=== PATIENT | female | born 1940 | race Caucasian/White ===

== ENCOUNTER 2016-10-11 13:18 | Emergency (ER) | payer MEDICARE, OTHER ==
[~2016-10-11] VITALS: Wt 64.5 kg
[~2016-10-11 13:18] MED LIST: ASPI81TA3 PO; BUDE6HFA INHALATION; FERR325C PO; ISOS30TA5 PO; NITR0.4T6 SL; OMEP40CA6 PO
--- NOTE | 2016-10-11 15:31 | ERD ---
ER Documentation Chief Complaint Date/Time DATE: 10/11/16 TIME: 15:28 Chief Complaint RIGHT FOOT PAIN FROM A FALL TODAY. NO DEFORMITY NOTED. HPI This patient is a 76-year-old female with history of type 2 diabetes, high cholesterol, and hypertension presenting to the emergency department for right foot pain which she rates as 6 out of 10 on the pain scale after injury in her home today at approximately 11 AM. Patient states she was going down the stairs when she missed the last step and flexed her foot forward causing pain. She denies any pop or crack when the injury occurred. Pain is exacerbated with ambulation. She took some naproxen at home with relief of her symptoms. She denies any fevers, chills, loss of consciousness, head injury, other injuries or symptoms. ROS All systems reviewed and are negative except as per history of present illness. Medications Home Meds Reported Medications Nitroglycerin* (Nitroglycerin* SL) 0.4 Mg Tab.subl, 0.4 MG SL Q5MIN Y for CHEST PAIN, BOTTLE 06/26/16 Aspirin* (Aspirin* Chew) 81 Mg Tab.chew, 81 MG PO DAILY, TAB.CHEW 06/26/16 Budesonide-Formoterol Fumarate* (Symbicort*) 160-4.5 Hfa.aer.ad, 2 PUFF INHALATION BID, #1 EACH 06/26/16 Isosorbide Mononitrate* (Isosorbide Mononitrate*) 30 Mg Tab.er.24h, 30 MG PO DAILY, TAB 06/26/16 Ferrous Sulfate (Iron) 325 Mg Capsule.er, 325 MG PO DAILY, CAP 06/26/16 Omeprazole* (Omeprazole*) 40 Mg Capsule.dr, 40 MG PO DAILY, #30 CAP 06/26/16 Allergies Allergies: Coded Allergies: No Known Drug Allergy (Verified Allergy, Unknown, 06/30/16) PMhx/Soc History of Surgery: Yes (HYSTERECTOMY) Anesthesia Reaction: No Hx Neurological Disorder: No Hx Respiratory Disorders: No Hx Cardiac Disorders: Yes (HEART CATH ) Hx Psychiatric Problems: No Hx Miscellaneous Medical Probl: No Hx Alcohol Use: No Hx Substance Use: No Hx Tobacco Use: No FmHx Noncontributory for chief complaint Physical Exam Vitals Vital Signs Date Time Temp Pulse Resp B/P Pulse Ox O2 Delivery O2 Flow Rate FiO2 10/11/16 13:24 99.0 99 20 136/75 97 Physical Exam INITIAL VITAL SIGNS: Reviewed by me. GENERAL: Alert and interactive. No acute distress. HEAD: Head is normocephalic and atraumatic. EYES: EOMI. No scleral icterus. No conjunctival injection. ENT: Moist mucosa. NECK: Supple. Full range of motion. RESPIRATORY: Normal respiratory effort. Clear breath sounds bilaterally. No wheezing, rales, or rhonchi. CV: Regular rate and rhythm. Normal S1 S2. No S3 or S4. No murmurs. ABDOMEN: Soft, non-distended, non-tender. No guarding. No rebound. No masses. EXTREMITIES: There is mild tenderness to palpation of the top of the foot over the carpal area on the right side. There is no warmth, erythema, edema, ecchymosis, or other findings. SKIN: Warm and dry. NEUROLOGIC: Alert and oriented x 4. Speech is normal. Moves all extremities equally. No motor or sensory deficits noted. Procedures/MDM 76-year-old female presents secondary to complaints of right foot pain after injury in her house today. I have ordered a right ankle and right foot x-ray looking for any signs of fracture, dislocations, or other abnormalities. 3 view right ankle x-ray interpreted by radiologist: PROCEDURE: XR Right Ankle CLINICAL INDICATION: Pain after injury TECHNIQUE: Standard 3 view radiographs were submitted. COMPARISON: None FINDINGS: Osseous structures: Well mineralized and intact with no fracture or destructive process identified. Calcaneal spurring is seen at the insertion of the plantar aponeurosis. Joint spaces: Well maintained with no significant erosions or spurring evident. Soft tissues: Appear unremarkable. IMPRESSION: 1. Calcaneal spurring 2. Otherwise, unremarkable right ankle series. 3 view right foot x-ray interpreted by radiologist: PROCEDURE: XR Right Foot CLINICAL INDICATION: Pain after injury TECHNIQUE: AP, oblique, and lateral radiographs were submitted. COMPARISON: None FINDINGS: Osseous structures: appear well mineralized and intact with no fracture or destructive process identified. There is calcaneal spurring at the insertion of the plantar aponeurosis. Joint spaces: Mild degenerative changes seen about the first metatarsal phalangeal joint. Soft tissues: appear unremarkable. IMPRESSION: 1. Calcaneal spurring 2. Mild degenerative change seen about the right first metatarsal phalangeal joint. Patient's primary diagnosis is foot strain on the right side. The patient was discharged with a prescription for naproxen. The patient was given an janusz wrap applied in the department and was neurovascularly intact post application. The patient's questions and concerns of been addressed in full and she is stable for discharge and outpatient management. Departure Diagnosis: Primary Impression: Strain of foot, right Additional Impression: Foot pain Condition: Stable Additional Instructions: No mas mejor en 2-3 mccauley, regresar. Mas peor en 24 horas, regresear rapidamente. Ir a doctor primario in 5-7 mccauley. Usar instrucciones cuando noe medicamento. TAJ GUTHRIE PA-C Oct 11, 2016 15:31
--- NOTE | 2016-10-11 15:50 | RADRPT ---
PROCEDURE: XR Right Foot CLINICAL INDICATION: Pain after injury TECHNIQUE: AP, oblique, and lateral radiographs were submitted. COMPARISON: None FINDINGS: Osseous structures: appear well mineralized and intact with no fracture or destructive process iden tified. There is calcaneal spurring at the insertion of the plantar aponeurosis. Joint spaces: Mild degenerative changes seen about the first metatarsal phalangeal joint. Soft tissues: appear unremarkable. IMPRESSION: 1. Calcaneal spurring 2. Mild degenerative change seen about the right first metatarsal phalangeal joint. Physician Michael Date Time Electronically viewed and signed by Physician Michael on 10/11/2016 15:50 /
--- NOTE | 2016-10-11 15:51 | RADRPT ---
PROCEDURE: XR Right Ankle CLINICAL INDICATION: Pain after injury TECHNIQUE: Standard 3 view radiographs were submitted. COMPARISON: None FINDINGS: Osseous structures: Well mineralized and intact with no fracture or destructive process identified. Calcaneal spurring is seen at the insertion of the plantar aponeurosis. Joint spaces: Well maintained with no significant erosions or spurring evident. Soft tissues: Appear unremarkable. IMPRESSION: 1. Calcaneal spurring 2. Otherwise, unremarkable right ankle series. Physician Michael Date Time Electronically viewed and signed by Physician Michael on 10/11/2016 15:51 /
[2016-10-11] MEDS ORDERED: IBUP-1542 PO (16:12)
== END 2016-10-11 16:22 | disposition home or self-care (01) ==
LOC: FTE 13:18
DX: S96.911A Strain of unspecified muscle and tendon at ankle and foot level, right foot, initial encounter (principal); W10.9XXA Fall (on) (from) unspecified stairs and steps, initial encounter; Y92.009 Unspecified place in unspecified non-institutional (private) residence as the place of occurrence of the external cause; Z79.82 Long term (current) use of aspirin
CPT/HCPCS: 73630

== ENCOUNTER 2016-11-05 10:47 | Day surgery (SDC) | payer MEDICARE, OTHER ==
[~2016-11-05] VITALS: Ht 160 cm; Wt 67.9 kg
[~2016-11-05 10:47] MED LIST changes: +IBUP-1542 PO
[2016-11-05 12:28] VITALS: Ht 160 cm; Wt 67.9 kg
[2016-11-05] MEDS ORDERED: SIMVASTATIN (12:38)
[2016-11-05] MEDS ORDERED: GLIPIZIDE (12:38)
[2016-11-05] MEDS ORDERED: PROPOFOL 40 ML ONE (12:40)
[2016-11-05] MEDS ORDERED: LIDOCAINE 2% (SDV) 5 ML INJ ONE (12:40)
[2016-11-05 12:49] VITALS: BP 126/79; PULSE 69; RESP 18
[2016-11-05 13:35] VITALS: BP 114/79; PULSE 60; RESP 16
--- NOTE | 2016-11-05 16:21 | GILP ---
DATE OF PROCEDURE: 11/05/2016 NAME OF PROCEDURE: Esophagogastroduodenoscopy and biopsy. SURGEON: Wilber Izquierdo MD PREOPERATIVE DIAGNOSES: 1. Abdominal pain. 2. Chronic heartburn. POSTOPERATIVE DIAGNOSES: 1. Large hiatal hernia. 2. Gastroesophageal reflux disease. 3. Gastritis with erosions. 4. Biopsy was positive for Helicobacter pylori infection. 5. Superficial ulcers in the stomach near the cardia and biopsies were taken for histopathology. INDICATION FOR THE PROCEDURE: Ms. Jessica Sheppard is a 76-year-old female patient who had upper abdo lili pain and chronic heartburn, not responding to therapy. The patient was scheduled for endoscop ic examination for further evaluation. The procedure and possible complications are well explained to the patient. The patient understood and consented to the procedure. DESCRIPTION OF PROCEDURE: Under the influence of anesthesia, the gastroscope was carefully introduc ed into the esophagus and under direct vision, it was advanced to the stomach and through the pyloru s into the duodenal bulb and descending duodenum. FINDINGS: ESOPHAGUS: The patient had a large hiatal hernia and gastroesophageal reflux disease. STOMACH: She had gastritis with erosions and gastric mucosal biopsies were positive for H. pylori i nfection. The patient was also noted to have superficial ulcers near the cardia of the stomach and biopsies were taken for histopathology. DUODENUM: Normal. The patient tolerated the procedures very well and there was no complication from the procedures. A t the end of the procedures, she was awake with stable vital signs and she was discharged home to [facility] care of her family. IMPRESSION: Please see postoperative diagnoses. PLAN: 1. Continue omeprazole. 2. Zantac 300 mg p.o. b.i.d. 3. Doxycycline 100 mg p.o. b.i.d. 4. Flagyl 500 mg p.o. b.i.d. 5. Pepto-Bismol 2 tablets p.o. q.i.d. All the last 4 medications for 14 days for H. pylori infection. Dictated By: WILBER IZQUIERDO MD GD/NTS Conf#: [id number] DID#: [id number] CC: WILBER IZQUIERDO MD;*EndCC*
--- NOTE | 2016-11-06 15:59 | CONS ---
DATE OF ADMISSION: 11/05/2016 DATE OF CONSULTATION: PREOPERATIVE GASTROENTEROLOGY CONSULTATION Dear Dr. Bah, I thank you very much for this kind referral. HISTORY OF PRESENT ILLNESS: Ms. Jessica Sheppard is a 76-year-old female patient who has been referre d to me for further evaluation of upper abdominal pain, not responding to therapy with omeprazole. The patient is also known to have had hiatal hernia and gastroesophageal reflux disease. The patien t has been taking baby aspirin a day. Her appetite has been good, and she is not losing any weight. There is no history of gallstones. She does not have any fever, chills, or jaundice. The patient is known to have had fatty liver. The patient had screening colonoscopy 3 years ago, and no colon neoplasm was identified. She is not a hypertensive. She has diabetes. There is no history of hear t disease or lung problem. There is no history of kidney disease. She has hyperlipidemia. She is status post hysterectomy. SOCIAL HISTORY: She is a nonsmoker. She does not abuse alcohol. FAMILY HISTORY: Negative for gastrointestinal tract neoplasm. ALLERGIES: THERE IS NO HISTORY OF SIGNIFICANT DRUG ALLERGY. MEDICATIONS: 1. Omeprazole 40 mg. 2. Glipizide 5 mg. 3. Simvastatin 20 mg. 4. Aspirin 81 mg. PHYSICAL EXAMINATION: VITAL SIGNS: She is 5 feet 1 inch tall, and she weighs 152 pounds. BMI is 28. Blood pressure is 1 40/82. HEART: Examination of the heart reveals normal first and second heart sounds. LUNGS: Clear. ABDOMEN: Soft without any distention. Liver and spleen are not palpable. There are no masses. Th ere is no focal tenderness. Normal bowel sounds are heard. CENTRAL NERVOUS SYSTEM: Does not reveal any focal neurological deficit. IMPRESSION: 1. Upper abdominal pain, not responding to therapy with omeprazole. 2. Large hiatal hernia and gastroesophageal reflux disease. 3. The patient is on baby aspirin a day. 4. The patient had a screening colonoscopy 3 years ago, and no colon neoplasm was identified. 5. Diabetes mellitus. 6. Hyperlipidemia. 7. History of fatty liver. 8. Status post hysterectomy. PLAN: 1. Continue omeprazole. 2. Endoscopic examination for further evaluation of upper abdominal pain. 3. The patient was advised to lose weight, have low fat diet and to have good control of serum ____ _ because of fatty liver. The procedure and possible complications are well explained to the patient. She understands and con sents to the procedure. I thank you once again. With warmest personal regards, Dictated By: WILBER SORIANO/DON Conf#: [id number] DID#: [id number]
== END 2016-11-05 14:07 | disposition home or self-care (01) ==
LOC: GIL 10:47
PROVIDERS: ATTEND Internal Medicine Gastroenterology
DX: K29.50 Unspecified chronic gastritis without bleeding (principal); B96.89 Other specified bacterial agents as the cause of diseases classified elsewhere; K21.9 Gastro-esophageal reflux disease without esophagitis; K44.9 Diaphragmatic hernia without obstruction or gangrene; K25.9 Gastric ulcer, unspecified as acute or chronic, without hemorrhage or perforation; E11.9 Type 2 diabetes mellitus without complications; E78.5 Hyperlipidemia, unspecified; Z90.710 Acquired absence of both cervix and uterus; Z79.82 Long term (current) use of aspirin
CPT/HCPCS: 82962; 87081; 88305; 88312

== ENCOUNTER 2018-02-05 07:29 | Day surgery (SDC) | END 2018-02-05 14:15 | disposition home or self-care (01) ==

== ENCOUNTER 2018-11-23 10:31 | Emergency (ER) | payer MEDICARE, OTHER ==
[~2018-11-23] VITALS: Ht 154.9 cm; Wt 67.2 kg
[~2018-11-23 10:31] MED LIST changes: +ALBU2.5V3 NEB; +ASPI-903 PO; -ASPI81TA3 PO; -BUDE6HFA INHALATION; +DOCU-144 PO; -FERR325C PO; +FURO40TA4 PO; +GLIP5TAB13 PO; -IBUP-1542 PO; -ISOS30TA5 PO; +ISOS30TA67 PO; +MECL-77 PO; +NITR0.4T39 SL; -NITR0.4T6 SL; +OMEP20CA16 PO; -OMEP40CA6 PO; +OXYB5TAB7 PO; +RANO10002 PO; +SIMV20TA PO
[2018-11-23 10:33] VITALS: BP 127/58; PULSE 92; RESP 18; Ht 154.9 cm; Wt 67.2 kg
[2018-11-23] MEDS ORDERED: ACETAMINOPHEN 500 MG TAB PO STA (11:31)
[2018-11-23] MEDS ORDERED: PROMETHAZINE/DM (CUP) PO ONE (12:00)
[2018-11-23] MEDS ORDERED: BENZONATATE 100 MG CAP PO ONE (12:00)
--- NOTE | 2018-11-23 12:13 | ERD ---
ER Documentation Chief Complaint Chief Complaint COUGH , RUNNY NOSE X 10 DAYS WITH INTERMITTENT FEVER HPI This is a 78-year-old female with a history of hypertension, diabetes mellitus and hypercholesteremia presents ED with cough times 10 days. Patient admits to subjective fevers, sputum production, headache, runny nose, nasal congestion, ear pain and sore throat. Denies chills, chest pain, shortness breath, trouble breathing, nausea, vomiting, diarrhea, constipation, neck pain, abdominal pain and all other symptoms. No known drug allergies. ROS All systems reviewed and are negative except as per history of present illness. Medications Home Meds Reported Medications Omeprazole* (Omeprazole*) 20 Mg Capsule.dr, 20 MG PO AC BREAKFAST, #30 CAP 02/05/18 Glipizide* (Glipizide*) 5 Mg Tablet, 5 MG PO BID, TAB 02/05/18 Docusate Sodium* (Colace*) 100 Mg Capsule, 100 MG PO TID, #60 CAP 02/05/18 Albuterol Sulfate* (Albuterol Sulfate* Neb) 0.083%-3 Ml Neb, 2.5 MG NEB Q3H PRN for WHEEZING AND SOB, #30 VIAL 02/05/18 Oxybutynin Chloride* (Ditropan*) 5 Mg Tab, 5 MG PO BID, TAB 02/05/18 Furosemide* (Furosemide*) 40 Mg Tablet, 40 MG PO DAILY, TAB 02/05/18 Nitroglycerin* (Nitrostat*) 0.4 Mg Tab.subl, 0.4 MG SL Q5MIN PRN for CHEST PAIN, BOTTLE 02/05/18 Meclizine Hcl* (Meclizine Hcl*) 25 Mg Tablet, 25 MG PO Q8H PRN for DIZZINESS, TAB 02/05/18 Simvastatin* (Zocor*) 20 Mg Tablet, 20 MG PO QHS, #30 TAB 02/05/18 Ranolazine* (Ranexa*) 1,000 Mg Tab.sr.12h, 1000 MG PO Q12, TAB 02/05/18 Aspirin* (Aspirin* Chew) 81 Mg Tab.chew, 81 MG PO DAILY, TAB.CHEW 02/05/18 Isosorbide Mononitrate* (Isosorbide Mononitrate*) 30 Mg Tab.er.24h, 30 MG PO DAILY, TAB 02/05/18 Allergies Allergies: Coded Allergies: No Known Drug Allergy (Verified Allergy, Unknown, 02/05/18) PMhx/Soc History of Surgery: Yes (TAHBSO) Anesthesia Reaction: No Hx Neurological Disorder: No Hx Respiratory Disorders: No Hx Cardiac Disorders: Yes (HTN,HLP, CAD) Hx Psychiatric Problems: No Hx Miscellaneous Medical Probl: No Hx Alcohol Use: No Hx Substance Use: No Hx Tobacco Use: No FmHx Family History: No diabetes Physical Exam Vitals Vital Signs Date Temp Pulse Resp B/P (MAP) Pulse Ox O2 O2 Flow FiO2 Time Delivery Rate 11/23/18 97.8 92 18 127/58 98 10:33 (81) Physical Exam Physical Exam Vitals signs: Reviewed by me. General: Well developed, well nourished, in no acute distress. Patient is awake and alert. Head: Normocephalic, atraumatic. Eyes: Normal conjunctiva, Pupils PERRLA, EOM intact grossly ENT: Pharynx is clear, Moist mucous membranes, external ears, nose and mouth normal, no tonsillar adenopathy, exudate or erythema, no kissing tonsils, no uvula deviation, tympanic membrane visualized bilaterally with no bulging, erythema, purulent air-fluid line seen, Neck: Supple, no masses, lymphadenopathy or JVD Respiratory: Clear to auscultation bilaterally with no wheezing, rhonchi, rales, no distress, no labored breathing Cardiovascular: RRR, no murmurs, rubs, or gallops Neurologic: Alert and oriented, moving all extremities, normal speech, no focal weakness, no cerebellar signs. Normal mentation Skin: warm and dry, No rash Psych: Normal mood Results 24 hrs Current Medications Medications Dose Sig/Yanick Start Time Status Last (Trade) Ordered Route PRN Stop Time Admin Dose Reason Admin Promethazine 5 ml ONCE ONCE 11/23/18 DC HCl/ PO 12:00 Dextromethorp 11/23/18 12:01 rock (Phenergan-Dm ) Benzonatate 100 mg ONCE ONCE 11/23/18 DC (Tessalon) PO 12:00 11/23/18 12:01 500 mg ONCE STAT 11/23/18 DC Acetaminophen PO 11:31 (Tylenol 11/23/18 11:33 Tab) Procedures/MDM EKG, MONITORS, & DIAGNOSTIC IMAGING: [None][place] [address] Radiology Main Line: [phone] DIAGNOSTIC IMAGING REPORT Patient: TRINH HILLMAN : 1940 Age: 78 Sex: F MR #: [id number] DOS: 11/23/18 1131 Ordering MD: MINA COLE PA-C Location: [facility] Room/Bed: PROCEDURE: XR chest. CLINICAL INDICATION: Cough TECHNIQUE: 2 views of the chest were obtained. COMPARISON: 06/26/2016 FINDINGS: The lungs are clear. Mild left basilar opacity represents atelectasis. There is no pleural effusion or pneumothorax. The cardiac and mediastinal contours are within normal limits. The aorta is tortuous and atherosclerotic. There is exaggerated thoracic kyphosis with multilevel degenerative changes. IMPRESSION: 1. Mild left basilar opacity representing atelectasis. 2. Exaggerated thoracic kyphosis with multilevel degenerative changes. RPTAT: AAEE Physician Dennis Date Time Electronically viewed and signed by Physician Dennis on 11/23/2018 12:12 RF/ CC: MINA COLE PA-C [id number] ER COURSE: The patient was given Promethazine DM, Tessalon Perles and Tylenol The medication was well tolerated and the patient reports improvement in symptoms. The patient was stable throughout ED course. I kept the patient and/or family informed of laboratory and diagnostic imaging results throughout the emergency room course. The patient was promptly evaluated and a treatment plan was devised based on H&P and other data. This plan was discussed with the patient who agreed and had no further questions or concerns prior to discharge. MEDICAL DECISION MAKING: [] DISPOSITION PLAN: We discussed follow up with the patient's primary care doctor within 24 to 48 hours. Patient counseled regarding my diagnostic impression and care plan. Prior to discharge all questions answered. Pt agrees with treatment plan and understands strict return precautions. Precautionary instructions provided including instructions to return to the ER if not improving or for any worsening or changing symptoms or concerns. SPECIALIST FOLLOW UP RECOMMENDED: None Patient has been advised to follow up with primary care in 1-2 days. Disclaimer: Inadvertent spelling and grammatical errors are likely due to EHR/dictation software use and do not reflect on the overall quality of patient care. Also, please note that the electronic time recorded on this note does not necessarily reflect the actual time of the patient encounter. Departure Diagnosis: Primary Impression: Acute bronchitis Bronchitis organism: unspecified organism Qualified Codes: J20.9 - Acute bronchitis, unspecified Condition: Stable Patient Instructions: Acute Bronchitis, Bronchitis, Antiobiotic Treatment (Adult) [facility] Additional Instructions: Paciente aconseja volver a Departamento de urgencias inmediatamente para sntomas nuevos o que empeoran . Paciente aconseja posteriores con el PCP en 1-2 jeffries . Paciente verbaliza la comprehensin y est de acuerdo con el tratamiento y el curso de accin. Si el paciente no tiene ninguna de atencin primaria pueden seguir con [facility] [address] [place] [address] o [facility] + [address] [address] MINA COLE PA-C Nov 23, 2018 12:13
[2018-11-23] MEDS ORDERED: BENZ-6 PO (12:20)
[2018-11-23] MEDS ORDERED: AZIT250T PO (12:22)
== END 2018-11-23 13:15 | disposition home or self-care (01) ==
LOC: FTE 10:31
DX: J20.9 Acute bronchitis, unspecified (principal); I10 Essential (primary) hypertension; I25.10 Atherosclerotic heart disease of native coronary artery without angina pectoris; E11.9 Type 2 diabetes mellitus without complications; Z79.82 Long term (current) use of aspirin; Z79.84 Long term (current) use of oral hypoglycemic drugs
CPT/HCPCS: 71046

== ENCOUNTER 2019-01-10 19:21 | Emergency (ER) | payer MEDICARE, OTHER ==
[~2019-01-10] VITALS: Ht 154.9 cm; Wt 65.9 kg
[~2019-01-10 19:21] MED LIST changes: +AZIT250T PO; +BENZ-6 PO
[2019-01-10 19:26] VITALS: Ht 154.9 cm; Wt 65.9 kg
--- NOTE | 2019-01-10 21:15 | ERD ---
ER Documentation Chief Complaint Chief Complaint RIGHT ANKLE/FOOT INJ; S/P MECH FALL @11AM HPI 78-year-old female, with history of diabetes, presents to the emergency department, complaining of right ankle pain after sustaining an injury today. The patient was walking and had a forced inversion of the foot, presenting sharp pain on the lateral aspect of the mid foot. The patient denies distal weakness, numbness or tingling. ROS All systems reviewed and are negative except as per history of present illness. Medications Home Meds Active Scripts Acetaminophen* (Tylenol*) 325 Mg Tablet, 2 TAB PO Q6 PRN for PAIN AND OR ELEVATED TEMP, #20 TAB Prov:LORRAINE SUAREZ MD 01/10/19 Front Wheel Walker* (Front Wheel Walker*) 1 Each Dme, EACH MC DIRECTED, #1 0 Refills Prov:LORRAINE SUAREZ MD 01/10/19 Azithromycin* (Zithromax*) 250 Mg Tablet, 250 MG PO .ZPACK DIRECTED, #6 TAB TAKE 500 MG (2 TABS) THE FIRST DAY THEN 250 MG (1 TAB) DAYS 2-5 Prov:MINA COLE PA-C 11/23/18 Benzonatate* (Tessalon Perle*) 100 Mg Capsule, 100 MG PO Q8H PRN for COUGH for 5 Days, CAP Prov:MINA COLE PA-C 11/23/18 Reported Medications Omeprazole* (Omeprazole*) 20 Mg Capsule.dr, 20 MG PO AC BREAKFAST, #30 CAP 02/05/18 Glipizide* (Glipizide*) 5 Mg Tablet, 5 MG PO BID, TAB 02/05/18 Docusate Sodium* (Colace*) 100 Mg Capsule, 100 MG PO TID, #60 CAP 02/05/18 Albuterol Sulfate* (Albuterol Sulfate* Neb) 0.083%-3 Ml Neb, 2.5 MG NEB Q3H PRN for WHEEZING AND SOB, #30 VIAL 02/05/18 Oxybutynin Chloride* (Ditropan*) 5 Mg Tab, 5 MG PO BID, TAB 02/05/18 Furosemide* (Furosemide*) 40 Mg Tablet, 40 MG PO DAILY, TAB 02/05/18 Nitroglycerin* (Nitrostat*) 0.4 Mg Tab.subl, 0.4 MG SL Q5MIN PRN for CHEST PAIN, BOTTLE 02/05/18 Meclizine Hcl* (Meclizine Hcl*) 25 Mg Tablet, 25 MG PO Q8H PRN for DIZZINESS, TAB 02/05/18 Simvastatin* (Zocor*) 20 Mg Tablet, 20 MG PO QHS, #30 TAB 02/05/18 Ranolazine* (Ranexa*) 1,000 Mg Tab.sr.12h, 1000 MG PO Q12, TAB 02/05/18 Aspirin* (Aspirin* Chew) 81 Mg Tab.chew, 81 MG PO DAILY, TAB.CHEW 02/05/18 Isosorbide Mononitrate* (Isosorbide Mononitrate*) 30 Mg Tab.er.24h, 30 MG PO DAILY, TAB 02/05/18 Allergies Allergies: Coded Allergies: No Known Drug Allergy (Verified Allergy, Unknown, 11/23/18) PMhx/Soc History of Surgery: Yes (hysterectomy ) Anesthesia Reaction: No Hx Neurological Disorder: No Hx Respiratory Disorders: No Hx Cardiac Disorders: Yes (HTN,HLP, CAD) Hx Psychiatric Problems: No Hx Miscellaneous Medical Probl: No Hx Alcohol Use: No Hx Substance Use: No Hx Tobacco Use: No FmHx Family History: diabetes; No coronary disease Physical Exam Vitals Vital Signs Date Temp Pulse Resp B/P (MAP) Pulse Ox O2 O2 Flow FiO2 Time Delivery Rate 01/11/19 98.2 75 17 126/68 98 Room Air 00:09 (87) 01/10/19 100.2 86 19 136/70 97 19:26 (92) Physical Exam Const: No acute distress Head: Atraumatic Eyes: Normal Conjunctiva ENT: Normal External Ears, Nose and Mouth. Neck: Full range of motion. No meningismus. Resp: Clear to auscultation bilaterally Cardio: Regular rate and rhythm, no murmurs Abd: Soft, non tender, non distended. Normal bowel sounds Skin: No petechiae or rashes Back: No midline or flank tenderness Ext: Right food with tenderness to palpation of the lateral malleolus and lateral mid food, no gross deformity, no edema, no ecchymosis. Distal neurovascular exam intact . no cyanosis, or edema Neur: Awake and alert Psych: Normal Mood and Affect Results 24 hrs Patient: TRINH HILLMAN : 1940 Age: 78 Sex: F MR #: [id number] DOS: 01/10/192140 Ordering MD: LORRAINE SUAREZ MD Location: [facility] Room/Bed: PROCEDURE: XR right foot. CLINICAL INDICATION: Fall, right foot pain TECHNIQUE: Three views of the right foot were obtained. COMPARISON: CR FOOT 10/11/2016. FINDINGS: There is a comminuted, minimally displaced fifth metatarsal base fracture which may extend to the articular surface. Remaining osseous structures are intact. There are moderate osteoarthritic changes of the first metatarsophalangeal and metatarsal sesamoidal joints. There is a moderate size plantar calcaneal spur. IMPRESSION: 1. Comminuted, minimally displaced fifth metatarsal base fracture, could be intra-articular. 2. Moderate osteoarthritis, first MTP and metatarsal sesamoidal joints. 3. Plantar calcaneal spur. RPTAT:HAJM Procedures/MDM Acute right ankle pain: Differential diagnosis include but not limited to: Ankle sprain/strain, ligament injury, arthritis, fracture, dislocation, septic arthritis. Neurovascular exam grossly intact, soft compartments. no clinical findings suggestive of acute infectious process, no deformity, no rashes. Pertinent Data: X-rays: Fifth metatarsal fracture. presentation consistent most likely with right fifth metatarsal fracture. During the ED course the patient received treatment with Ortho boot presenting overall improvement of the symptoms. Splint evaluation: Type: Ortho boot Location: RLE Position: good alignment in anatomical position Neurovascular intact The patient was told that elevating the injured part will help reduce pain and swelling. Ice packs can decrease pain and promote healing when applied in the first two days after an injury. The pack should be dry on the outside. Apply it for half an hour three to four times a day. Results and clinical impression discussed with patient who agrees with management. The patient is stable to be treated outpatient and will be discharged home with recommendations for ice, rest and partial immobilization. NSAIDs 3 times daily for 5 days and close monitoring. The patient was instructed to follow up with the primary care provider in the next 48h for an Ortho referral. If symptoms persist, worsen or new symptoms develop, then patient should return to the ED immediately. Instructions explained and given to patient with acknowledgment and demonstrated understanding. Disclaimer: Inadvertent spelling and grammatical errors are likely due to EHR/dictation software use and do not reflect on the overall quality of patient care. Also, please note that the electronic time recorded on this note does not necessarily reflect the actual time of the patient encounter. Departure Diagnosis: Primary Impression: Fracture of fifth metatarsal bone of right foot Condition: Stable Additional Instructions: Muchas fatimah por [facility] para newsome servicio. Esperamos que en newsome visita a la cherise de emergencia newsome problema medico haya sido solucionado y que se sienta mucho mejor. Para estar seguros que newsome mejoria sigue en proceso, le pedimos el favor de hacer garland bruno de seguimiento medico con newsome doctor primario en los proximos 2-4 mccauley. Lleve con usted estos documentos y las medicinas recetadas. Si kylah sintomas empeoran, NO SE ESPERE, por favor regrese a cherise de emergencia INMEDIATAMENTE. En niyah que usted no tenga un mdico de atencin primaria: Llame al mdico o clnica comunitaria de referencia que aparece abajo quyen las horas de consultorio para hacer garland bruno para que le vean. CLINICAS: [facility] [phone] [facility] [phone] [facility] [phone] [facility] [phone] [facility] [phone] [address] [facility] [address] [phone] MD Jan 10, 2019 21:15
[2019-01-10] MEDS ORDERED: WALK1EAC23 MC (23:57)
[2019-01-10] MEDS ORDERED: ACET325T33 PO (23:57)
[2019-01-11 00:09] VITALS: BP 126/68; PULSE 75; RESP 17
== END 2019-01-11 00:14 | disposition home or self-care (01) ==
LOC: FTE 19:21
DX: S92.351A Displaced fracture of fifth metatarsal bone, right foot, initial encounter for closed fracture (principal); I10 Essential (primary) hypertension; E11.9 Type 2 diabetes mellitus without complications; I25.10 Atherosclerotic heart disease of native coronary artery without angina pectoris; X50.1XXA Overexertion from prolonged static or awkward postures, initial encounter; Y92.9 Unspecified place or not applicable; Z79.82 Long term (current) use of aspirin; Z79.84 Long term (current) use of oral hypoglycemic drugs
CPT/HCPCS: 73630

== ENCOUNTER 2019-02-14 11:27 | Emergency (ER) | payer MEDICARE, OTHER ==
[~2019-02-14] VITALS: Wt 65.9 kg
[~2019-02-14 11:27] MED LIST changes: +ACET325T33 PO; +WALK1EAC23 MC
[2019-02-14 11:30] VITALS: BP 131/70; PULSE 75; RESP 18
[2019-02-14] MEDS ORDERED: KETOROLAC 15 MG INJ IM STA (12:13)
[2019-02-14] MEDS ORDERED: DEXAMETHASONE 10 MG/ML 1 ML INJ IM ONE (12:30)
[2019-02-14] MEDS ORDERED: ACET325T33 PO (13:07)
--- NOTE | 2019-02-14 14:19 | ERD ---
ER Documentation Chief Complaint Chief Complaint R HIP PAIN FROM A FALL 2 MOS AGO. NO DISTRESS. AMBULATED WITH WALKER. HPI 78-year-old female with past medical history of high cholesterol, diabetes, hypertension presents with complaints of right hip and right-sided low back pain with radiation down her right leg for the past 1 month. She reports constant pain which is rated 10/10 in severity currently and is worse with walking. She took naproxen at home with some relief. She denies any bowel or bladder incontinence, fevers, chills, falls, or other symptoms at this time. ROS All systems reviewed and are negative except as per history of present illness. Medications Home Meds Active Scripts Acetaminophen* (Tylenol*) 325 Mg Tablet, 2 TAB PO Q6 PRN for PAIN AND OR ELEVATED TEMP, #20 TAB Prov:TAJ GUTHRIE PA-C 02/14/19 Acetaminophen* (Tylenol*) 325 Mg Tablet, 2 TAB PO Q6 PRN for PAIN AND OR ELEVATED TEMP, #20 TAB Prov:LORRAINE SUAREZ MD 01/10/19 Front Wheel Walker* (Front Wheel Walker*) 1 Each Dme, EACH MC DIRECTED, #1 0 Refills Prov:LORRAINE SUAREZ MD 01/10/19 Azithromycin* (Zithromax*) 250 Mg Tablet, 250 MG PO .ZPACK DIRECTED, #6 TAB TAKE 500 MG (2 TABS) THE FIRST DAY THEN 250 MG (1 TAB) DAYS 2-5 Prov:MINA COLE PA-C 11/23/18 Benzonatate* (Tessalon Perle*) 100 Mg Capsule, 100 MG PO Q8H PRN for COUGH for 5 Days, CAP Prov:MINA COLE PA-C 11/23/18 Reported Medications Omeprazole* (Omeprazole*) 20 Mg Capsule.dr, 20 MG PO AC BREAKFAST, #30 CAP 02/05/18 Glipizide* (Glipizide*) 5 Mg Tablet, 5 MG PO BID, TAB 02/05/18 Docusate Sodium* (Colace*) 100 Mg Capsule, 100 MG PO TID, #60 CAP 02/05/18 Albuterol Sulfate* (Albuterol Sulfate* Neb) 0.083%-3 Ml Neb, 2.5 MG NEB Q3H PRN for WHEEZING AND SOB, #30 VIAL 02/05/18 Oxybutynin Chloride* (Ditropan*) 5 Mg Tab, 5 MG PO BID, TAB 02/05/18 Furosemide* (Furosemide*) 40 Mg Tablet, 40 MG PO DAILY, TAB 02/05/18 Nitroglycerin* (Nitrostat*) 0.4 Mg Tab.subl, 0.4 MG SL Q5MIN PRN for CHEST PAIN, BOTTLE 02/05/18 Meclizine Hcl* (Meclizine Hcl*) 25 Mg Tablet, 25 MG PO Q8H PRN for DIZZINESS, TAB 02/05/18 Simvastatin* (Zocor*) 20 Mg Tablet, 20 MG PO QHS, #30 TAB 02/05/18 Ranolazine* (Ranexa*) 1,000 Mg Tab.sr.12h, 1000 MG PO Q12, TAB 02/05/18 Aspirin* (Aspirin* Chew) 81 Mg Tab.chew, 81 MG PO DAILY, TAB.CHEW 02/05/18 Isosorbide Mononitrate* (Isosorbide Mononitrate*) 30 Mg Tab.er.24h, 30 MG PO DAILY, TAB 02/05/18 Allergies Allergies: Coded Allergies: No Known Drug Allergy (Verified Allergy, Unknown, 11/23/18) PMhx/Soc History of Surgery: Yes (hysterectomy ) Anesthesia Reaction: No Hx Neurological Disorder: No Hx Respiratory Disorders: No Hx Cardiac Disorders: Yes (HTN,HLP, CAD) Hx Psychiatric Problems: No Hx Miscellaneous Medical Probl: No Hx Alcohol Use: No Hx Substance Use: No Hx Tobacco Use: No FmHx Family History: No diabetes Physical Exam Vitals Vital Signs Date Temp Pulse Resp B/P (MAP) Pulse Ox O2 O2 Flow FiO2 Time Delivery Rate 02/14/19 98.3 75 18 131/70 98 11:30 (90) Physical Exam Const: No acute distress Head: Atraumatic Eyes: Normal Conjunctiva ENT: Normal External Ears, Nose and Mouth. Neck: Full range of motion. No meningismus. Resp: Clear to auscultation bilaterally Cardio: Regular rate and rhythm, no murmurs Abd: Soft, non tender, non distended. Normal bowel sounds. No rebound tenderness or guarding. No McBurney's point tenderness. Skin: No petechiae or rashes Back: No midline or flank tenderness. No CVA tenderness. Tenderness palpation over the paraspinal muscles of the lumbar spine on the right. Ext: No cyanosis, or edema. Tenderness palpation over the right lateral hip. Range of motion of the right hip slightly limited secondary to pain. Neur: Awake and alert Psych: Normal Mood and Affect Results 24 hrs Current Medications Medications Dose Sig/Yanick Start Time Status Last (Trade) Ordered Route PRN Stop Time Admin Dose Reason Admin 10 mg ONCE ONCE 02/14/19 DC 02/14/19 Dexamethasone IM 12:30 02/14/19 12:21 (Decadron) 12:31 Ketorolac 15 mg ONCE STAT 02/14/19 DC 02/14/19 Tromethamine IM 12:13 02/14/19 12:21 (Toradol) 12:14 [place] [id number] Radiology Main Line: [phone] DIAGNOSTIC IMAGING REPORT Patient: TRINH HILLMAN : 1940 Age: 78 Sex: F MR #: [id number] DOS: 02/14/19 0000 Ordering MD: TAJ GUTHRIE PA-C Location: [facility] Room/Bed: PROCEDURE: XR right Hip. CLINICAL INDICATION: Right hip pain TECHNIQUE: AP and frog lateral views of the right hip were performed portably. COMPARISON: CT 03/08/2013 FINDINGS: The right hip appears intact without acute fracture or dislocation. Mild degenerative changes seen in the right hip, and more notably as partially included there are again advanced degenerative changes at the symphysis pubis level. Several right buttock injection granulomata are seen overlying the right pelvis. IMPRESSION: No definite acute right hip fracture or dislocation is seen. Degenerative changes, including involving the symphysis pubis. Note, nondisplaced fractures may initially be inapparent and short-term imaging followup could be obtained if concern or symptoms persist. RPTAT: HSAF Physician Marilu Date Time Electronically viewed and signed by Physician Marilu on 02/14/2019 12:54 RF/ CC: TAJ GUTHRIE PA-C [phone] Procedures/MDM 78-year-old female presents to the emergency department complaining of right low back pain and right hip pain. X-ray of the right hip showed no definite acute abnormalities. The full report interpreted by the radiologist may be viewed above. The patient was administered IM Toradol and IM Decadron in the departme nt with good response. She was significantly improved prior to discharge. History, physical exam, work-up most consistent with right low back pain with sciatica as well as right hip strain. Patient's musculoskeletal symptoms have stabilized while they have been evaluated in the department and are appropriate for outpatient work up. No evidence of cauda equina, cord compression, infiltrative, or infectious etiology. Departure Diagnosis: Primary Impression: Right hip pain Condition: Fair Patient Instructions: Hip Precautions, Leg and Knee Exercises: Hip Pulls Additional Instructions: Llame al doctor AIDAN y kelley garland ARNEL PARA DENTRO DE 1-2 BARBA.Dgale a la secretaria que nosotros le instruimos hacer esta arnel.Avise o llame si newsome condicin se empeora antes de la arnel. Regresa aqui si peor o no mejor. TAJ GUTHRIE PA-C Feb 14, 2019 14:19
== END 2019-02-14 13:30 | disposition home or self-care (01) ==
LOC: FTE 11:27
DX: M25.551 Pain in right hip (principal); I10 Essential (primary) hypertension; I25.10 Atherosclerotic heart disease of native coronary artery without angina pectoris
CPT/HCPCS: 73510; 96372; 99284; J1100; J1885

== ENCOUNTER 2019-05-13 12:01 | Emergency (ER) | payer MEDICARE, OTHER ==
[~2019-05-13] VITALS: Ht 144.8 cm; Wt 65.6 kg
[~2019-05-13 12:01] MED LIST changes: +ALBU8.5H8 INH; +DOXY100T20 PO; +LORA-441 PO; +PRED20TA PO
[2019-05-13 12:09] VITALS: Ht 144.8 cm; Wt 65.6 kg
[2019-05-13] MEDS ORDERED: ALBUTEROL 0.083% (NEB) 2.5 MG/3 ML AMP HHN STA (15:21)
[2019-05-13 17:13] VITALS: BP 134/60; PULSE 65; RESP 17
== END 2019-05-13 17:14 | disposition home or self-care (01) ==
LOC: FTE 12:01
DX: B34.9 Viral infection, unspecified (principal); F41.9 Anxiety disorder, unspecified; I10 Essential (primary) hypertension; I25.10 Atherosclerotic heart disease of native coronary artery without angina pectoris; E11.9 Type 2 diabetes mellitus without complications; Z79.82 Long term (current) use of aspirin; Z79.84 Long term (current) use of oral hypoglycemic drugs
CPT/HCPCS: 36415; 71045; 80048; 81001; 84484; 85025; 93005; 94640